=== PATIENT | male | born 1970 | race Caucasian/White ===

== ENCOUNTER 2016-07-01 19:31 | Emergency (ER) | payer MEDICAID ==
[~2016-07-01] VITALS: Ht 165.1 cm; Wt 74.8 kg
[~2016-07-01 19:31] MED LIST: BACTRIM DS 8001 TA1 PO; BREO ELLIPTA1 POW IH; CHROMIUM PIC1000 MCG PO; CYCLOBENZAPRINE10 M1 OR; DEBROX OTIC DRO15 ML OT; DICLOFENAC SODI75 M3 PO; ETODOLAC400 M1 PO; FLEXERIL10 MG PO; HYDROCODONE1 TABLET PO; IBUPROFEN800 MG PO; MIGRANOW KIT50 MG MC; NATURE'S BLEND F1 MG PO; NOMEDS XX; OMEPRAZOLE20 MG PO; PLAVIX 75MG TAB75 MG PO; PROMETHAZINE HC25 M1 PO; PROTONIX 40MG T40 MG PO; TESSALON PERLE100 M1 PO; TORADOL10 MG PO; XARELTO20 MG PO
[2016-07-01] MEDS ORDERED: ZOFRAN ODT4 MG PO (21:25)
--- NOTE | 2016-07-01 21:25 | [facility] Report ---
History of Present Issue Date/Time Seen by Provider 07/01/162109 Visit Reason Pt arrived:Walked Presenting Problem:COUGH, BODY ACHES X4 DAYS. STATES SEEING DR THIS MORNING AND WAS PRESCRIBED ABT BUT HAS NOT TAKEN ANY YET. Location if Accident: Onset of symptoms date/time:06/30/1605/04/700 or onset unknown for: Have you (or family members/close friends) recently traveled outside the [place]? N If Yes, where/when: Have you had exposure to infectious disease within the past month? TB? Other? Specify: c/o "I just don't feel well". Bertha Cruz this morning. "she said rales in my lung". Tried to flu test but pt gagged and refused it any further. Refusing this evening. Declining CXR. "she already said my lungs don't sound normal". Rx what sounds like levaquin. Hasn't started it yet. Labs Friday. resulted today. Normal he recalls except Vit D low. Intermittent cough, chest congestion x months. Worse this time x 3-4 days. Breo inhaler at home. Coughing until he gags and vomits. Source patient Exam Limitations no limitations ALLERGIES Coded Allergies: Penicillins (07/01/16) aspirin (07/01/16) Home Medications Reported Medications Rivaroxaban (Xarelto) 20 MG PO DAILY #30 FLUTICASONE/VILANTEROL (Breo Ellipta 100-25 Mcg INH) 1 POW IH DAILY Chromium Picolinate 1,000 MCG PO Benzonatate (Tessalon Perle) 100 MG PO Pantoprazole Sodium (Protonix 40MG TAB) 40 MG PO BID Etodolac (Etodolac ER) 400 MG PO Sumatriptan Sung/Menthol/Camphor (Migranow Kit) 50 MG MC Ibuprofen (Ibuprofen 800MG) 800 MG PO Folic Acid 1 MG PO Omeprazole (Omeprazole 20MG) 20 MG PO DAILY History Medical History General CAD? No Angina: No HI: No Hypertension? No Hyperlipidemia? No CHF? No DVT? Yes PE? No COPD? No Asthma? No Anemia? No GERD? No Gastric ulcers? No GI Bleed? No Hernia? Yes Thyroid Problems? No Hypothyroidism? No CVA? No Seizures? No Diabetes? No Insulin Dependent: No Insulin Pump: No Home FSBS? No Renal Insuffiency? No UTI? No Stones? No BPH? No GB Disease: Yes Nephritic Syndrome? No Asplenia? No Hepatitis? No Sickle Cell Disease? No Arthritis? No Migraines? Yes Cataracts? No Glaucoma? No MRSA? No HIV? No TB? No Anxiety? No Depression? No Cancer? No Immunization HX DT/Tetanus [id number] Surgical Hx Previous Surgery?Y Hernia Repair SHERRY ARM BLOOD CLOTS GALLBLADDER Family History Family HX Diabetes Yes Hypertension Yes Hyperlipidemia Yes Cancer Yes Social History Smoking Hx Smoker: Former Smoker Tobacco: No Alcohol Alcohol: No Review of Systems All Other Systems Reviewed and Negative Constitutional denies chills, denies fever, malaise ENT nose discharge. denies: ear pain, nose congestion, throat pain. Respiratory see HPI Cardiovascular denies chest pain Gastrointestinal denies abdominal pain, denies diarrhea, denies nausea, vomiting Physical Exam Vital Signs Vital Signs Date Time Temp Pulse Resp B/P Pulse O2 O2 Flow FiO2 Ox Delivery Rate 07/01 2127 99.3 109 20 121/80 96 07/01 2028 99.3 109 20 121/80 96 07/01 1945 99.3 109 20 121/80 96 (ARIANNA BUSTILLO APRN) General Appearance mild distress, coughing until gags and vomiting in emesis container; cough, gag, vomit multiiple times during visit, very dishelved, unkept appearance Eye Exam - bilateral eye normal exam Ear, Nose, Throat normal ENT inspection Neck non-tender, supple Respiratory Status Yes: productive cough. No: respiratory distress. Lung Sounds anterior: lungs clear. posterior: lungs clear. bilateral: lungs clear. Cardiovascular no murmur, tachycardia Gastrointestinal normal bowel sounds, non tender, soft Neurologic alert Skin normal color, warm/dry Lymphatic no adenopathy (cervical) Medical Decision Making LABS/Meds/Orders Pt receiving controlled substance in ED? No Departure Departure Time of Disposition 2120 Disposition DC Home or Self Care(routine) Clinical Impression Primary Impression: Pneumonia Qualifiers: Pneumonia type: due to unspecified organism Laterality: unspecified laterality Lung location: unspecified part of lung Qualified Code: J18.9 - Pneumonia, unspecified organism Secondary Impressions: Nausea Condition STABLE Referrals Missy Samuels (Family) Immediately for new or worsening symptoms No improvement in 48 hours Patient Instructions DI for Cough -- Adult, DI for Nausea -- Adult, DI for Pneumonia -- Adult Additional Instructions Refused flu test You are not going to get better without starting treatment. Start antibiotic you already have at home for this. Use inhaler at home for wheezing and SOA. Increase fluids Rest Alternate tylenol/ibuprofen as discussed for fever/pain zofran for nausea. monitor symptoms. Seek treatment immediately for new or worsening symptoms or if no improvement over the next 48 hours. Discharge Counseling Counseled pt/family regarding diagnosis, medications/RX, home care, follow up needs Prescriptions Current Visit Scripts Ondansetron (Zofran 4MG Odt) 4 MG PO Q6HP PRN NAUSEA AND VOMITING #6 ODT at 1926
[2016-07-01 21:28] VITALS: BP 121/80
== END 2016-07-01 21:28 | disposition home or self-care (01) ==
LOC: ER 19:31 → UTC 19:31
DX: J18.9 Pneumonia, unspecified organism (principal)